=== PATIENT | male | born 1980 | race African-American/Black ===

== ENCOUNTER 2024-09-13 11:00 | Outpatient (RCR) | payer MEDICAID, SELFPAY | END 2025-01-11 23:59 | disposition home or self-care (01) | PROVIDERS: PCP Urology; Visit Provider Urology | DX: R10.2 Pelvic and perineal pain (principal); R10.9 Unspecified abdominal pain; R37 Sexual dysfunction, unspecified; M62.89 Other specified disorders of muscle; L90.5 Scar conditions and fibrosis of skin; Z51.89 Encounter for other specified aftercare | CPT/HCPCS: 97110; 97140; 97162 ==